=== PATIENT | male | born 2005 | race Two or more races ===

== ENCOUNTER → 2024-01-26 | Emergency (ER) | payer OTHER ==
[~2024-01-26] VITALS: Ht 170.2 cm; Wt 56.7 kg
[~2024-01-26] MED LIST: FAMOTIDINE/PF 20 MG/2 ML VIAL IV PUSH STA; HYOSCYAMINE SULFATE 0.125 MG TAB.SUBL SL STA; LEVSIN/SL0.125 MG SL; ONDANSETRON HCL 2 MG/ML VIAL IV STA; PEPCID40 MG PO; SIMETHICONE80 MG PO
[2024-01-26 04:45] LABS: PH,URINE 5.5 (5.0-8.0); URINE APPEARANCE Clear; URINE BILIRRUBIN Negative (NEGATIVE); URINE BLOOD Negative; URINE COLOR Yellow; URINE GLUCOSE Negative (NEGATIVE); URINE LEUKOCYTE Negative; URINE NITRATE Negative; URINE PROTEIN Negative (NEGATIVE)
[2024-01-26 04:49] LABS: URINE BACTERIA 8.8 uL (0.0-1933); URINE RBC 2.4 uL (0.0-20.8); URINE WBC 3.5 uL (0.0-23.2)
[2024-01-26 05:03] LABS: URINE EPITHELIAL CELLS 0.6 uL (0.0-38.8)
[2024-01-26 05:10] LABS: HEMATOCRIT 41.7 % (39.0-48.0); HEMOGLOBIN 14.4 g/dL (13-16.00); MEAN CELL VOLUME 86.4 fL (80.0-100.00); MEAN CORPUSCULAR HEMOGLOBIN 29.9 pg (27.00-32.0); MEAN CORPUSCULAR HGB CONC 34.6 g/dl (32.0-36.0); PLATELET COUNT 240 K/uL (150-450); RED BLOOD COUNT 4.82 M/uL (4.00-6.00); RED CELL DISTRIBUTION WIDTH 12.8 % (11.5-14.5)
[2024-01-26 05:40] LABS: CALCIUM 9.7 mg/dL (8.5-10.1); CREATININE SERUM 0.7 mg/dL (0.70-1.30); GFR 143.77; POTASSIUM 3.7 mEq/L (3.5-5.1)
== END | disposition home or self-care (01) ==
LOC: ER 03:20
PROVIDERS: General Practice
DX: R10.13 Epigastric pain (principal); R50.9 Fever, unspecified